=== PATIENT | female | born 1980 | race Caucasian/White ===

== ENCOUNTER 2022-03-18 10:38 | Outpatient (CLI) | payer BC, SELFPAY | END 2022-03-18 10:39 | disposition home or self-care (01) | LOC: US 10:39 | PROVIDERS: Visit Provider Obstetrics & Gynecology | DX: O09.523 Supervision of elderly multigravida, third trimester (principal); O10.913 Unspecified pre-existing hypertension complicating pregnancy, third trimester; O98.513 Other viral diseases complicating pregnancy, third trimester; U07.1 COVID-19; Z3A.38 38 weeks gestation of pregnancy ==

== ENCOUNTER 2022-03-18 10:44 | Outpatient (CLI) | payer BC, SELFPAY ==
--- NOTE | 2022-03-18 10:45 | CRLHL7_ITS ---
For Patients: As a result of the Cures Act, medical imaging exams and procedure reports are released immediately into your electronic medical record. You may view this report before your referring provider. If you have questions, please contact your health care provider. Indication: Nonreactive nonstress test. Measuring small for gestational age. Technique: Sonography of the gravid uterus was performed limited to that which is discussed below. Comparison: The most recent study of March 14, 2022 Findings: The biophysical profile score is 6 out of 8. breathing movement scored 0 points. The biophysical profile on the prior study was 8 out of 8. There is a single live intrauterine that is currently vertex. The cervix is not visualized. The single deepest pocket is 7 centimeters. heart rate is 142 beats per minute. The placenta is posterior. BIOMETRY: BPD is 9.2 centimeters corresponding to 37 weeks and 3 days at the 52 percentile HC is 33.5 centimeter corresponding to 38 weeks and 2 days at the 33 percentile AC is 34.33 centimeters corresponding to 38 weeks and 2 days at the 68th percentile FL is 7.0 centimeters corresponding to 35 weeks and 6 days and corresponding to the 6 percentile FL/AC ratio is 20.3 and HC/AC ratio is 0.98 weight is 3253 grams. Age by current ultrasound is 37 weeks and 3 days with an estimated date of delivery by this ultrasound of 03/1922. Estimated weight as based on the estimated date of delivery is 46 percentile Impression: 1. The biophysical profile score is 6 out of 8. breathing movement scored 0 points 2. There is a single live that is vertex. Cervix not visualized. Normal fluid volumes. Normal heart rate. Placenta posterior. 3. Current weight of 3253 grams is at the 46 percentile 4. Biometry as in the body of the report Dictated by Ranulfo Garcia MD @ 03/18/2022 12:44:13 PM (Electronically Signed)
== END 2022-03-18 10:45 | disposition home or self-care (01) ==
LOC: US 10:45
PROVIDERS: Visit Provider Obstetrics & Gynecology
DX: O09.523 Supervision of elderly multigravida, third trimester (principal); O10.913 Unspecified pre-existing hypertension complicating pregnancy, third trimester; O98.513 Other viral diseases complicating pregnancy, third trimester; U07.1 COVID-19; Z3A.38 38 weeks gestation of pregnancy
CPT/HCPCS: 76816; 76819

== ENCOUNTER 2022-03-19 17:26 | Inpatient (IN) | payer BC, SELFPAY ==
[2022-03-19 17:43] VITALS: BP 118/56; PULSE 75
[2022-03-19 17:48] VITALS: BP 118/56; PULSE 75; RESP 18; TEMP 36.9
[2022-03-19 18:12] LABS: Hemoglobin* 10.6 gm/dL (12.0-16.0)
[2022-03-19 18:45] VITALS: BMI 31.1
[2022-03-19 19:05] LABS: SARS PCR* POSITIVE (Negative)
--- NOTE | 2022-03-19 19:21 | P.LDBA_ITS ---
Subjective History of Present Illness Time Seen by Provider: 19:20 Date Seen: 03/19/22 Narrative: Bernarda is a 41 year old with a female fetus at 38weeks 3 days GA. Her full history and physical was dictated by Dr. Morgan Mg on March 14; please see this document for further details. Because of AMA status, biophysical profile was done March 14, and was 8/8. At a routine visit yesterday March 18,, Bernarda reported diminished movement. Subsequent NST was nonreactive, and follow-up BPP lacked breathing movements and was 6/8, therefore equivocal. Repeat BPP and NST today returned at the sameresults. After discussion of the risks and benefits of induction of labor for non-reassuring testing, all of Bernarda's questions were answered to her satisfaction; she agreed to start labor induction this evening. Prior cervix exams at the clinic were 1 /70/ high; presentation was vertex. Since starting twice -daily propranolol, Bernarda has had 1 migraine headache in the last month. OB - H&P: Exam Physical Exam: Vital signs: Temp Pulse Resp BP 98.4 F 75 18 118/56 L 03/19/22 17:48 03/19/22 17:48 03/19/22 17:48 03/19/22 17:48 Constitutional: Comments: Well -appearing gravid female in no acute distress. Routine Respiratory Exam: Comments: Normal respiratory effort. No cough or wheeze. Routine Cardiovascular Exam: Comments: Regular rate and rhythm. No peripheral edema. Detailed Abdominal Exam: Comments: Gravid abdomen, soft, nontender. Fundal height consistent with dates. presentation vertex by Jacob's. Detailed Labor and Delivery Exam: Dilation (cm): 1 Effacement (%): 60 Cervix position: posterior Consistency: soft Fetus (Single): Station: -3 Routine Neurological Exam: Present alert, CN II-XII intact, moving all ex tremities and normal speech Routine Psychiatric Exam: Present normal affect, normal thought process, cooperative and good insight OB - Problem Based A/P Additional Plan (1) Multigravida of advanced maternal age: Problem details: non-reassuring testing; induction of labor indicated Status: Acute (2) Migraine headache: Problem details: Rare since starting propranolol. Maxalt for breakthrough as needed. Status: Acute (3) Hypertension: Problem details: history of chronic hypertension. BID propranolol maintains systolic blood pressures 96-132; diastolic blood pressures 52-82. Status: Acute (4) : Problem details: Biophysical profile reveals adequate amniotic fluid, but inadequate--though present-- breathing movements. Category 2 NST with moderate variability, lacking accelerations or decelerations. Induction of labor indicated for advanced maternal age with non-reassuring testing. Lopez score 5. GBS negative. Rh positive. Rubella immune. Received Tdap and influenza vaccinations. Status: Acute Plan Admit to Center. Oral misoprostol ordered. AROM and/or Pitocin as needed. Continue propranolol twice daily.
[2022-03-19 20:01] VITALS: BP 117/74; PULSE 72
[2022-03-19 20:39] VITALS: BP 131/85; PULSE 72
[2022-03-19 20:41] VITALS: BP 131/85; PULSE 72; RESP 16; TEMP 36.9
[2022-03-19] MEDS: miSOPROStoL 25 MCG/0.25 TABLET 50 MCG PO (20:43)
[2022-03-19] MEDS: PROPRANOLOL 20 MG TABLET 60 MG PO (20:44)
[2022-03-19] MEDS: LACTATED RINGERS 1000 ML 1,000 ML IV (23:48)
[2022-03-20] VITALS (76 sets, daily range): BP systolic 101–161; BP diastolic 57–94; PULSE 59–83; RESP 16–20; TEMP 36.6–37.1; O2SAT 94–99
[2022-03-20] MEDS: miSOPROStoL 25 MCG/0.25 TABLET 50 MCG PO ×2 (00:55→04:40)
[2022-03-20] MEDS: hydrOXYzine pamoate 25 MG CAPSULE 100 MG PO (00:56)
[2022-03-20] MEDS: SIMETHICONE 80 MG TAB.CHEW PO (00:56)
--- NOTE | 2022-03-20 10:37 | PM.OBPNL ---
Pain Control Comments: movements reduced. Contractions felt more acutely. Contractions Monitor mode: External Contraction pattern: Irregular Contraction intensity: Moderate Pelvic Exam Dilation (cm): 2 Effacement (%): 80 Station: -2 Comments: midposition, soft Fetus (Single) status: Category ll Assessment and Plan Assessment: induction ongoing Plan: begin Pitocin augmentation Comments: Will initiate Pitocin, starting at 2mIU/min and advancing every 30 minutes. Consider AROM, IUPC.
[2022-03-20] MEDS: PROPRANOLOL 20 MG TABLET 60 MG PO (10:55)
[2022-03-20] MEDS: OXYTOCIN 30 unit/500 ML in NS 30 UNIT/500 ML BAG IVPB (10:57)
[2022-03-20] MEDS: LACTATED RINGERS 1000 ML 1,000 ML 125 ML IV (11:03)
[2022-03-20] MEDS: fentaNYL 100 MCG/2 ML inj IVP (14:14)
--- NOTE | 2022-03-20 16:56 | PM.OBPNL ---
Pain Control Time Seen by Provider: 16:56 Date Seen: 03/20/22 Pain control: tolerating well Contractions Monitor mode: External Contraction pattern: Irregular Contraction intensity: Moderate Pelvic Exam Dilation (cm): 2 Effacement (%): 80 Station: -2 Comments: midposition Fetus (Single) Amniotic Membrane Status: AROM (copious clear) status: Category ll Assessment and Plan Pitocin rate (mU/min): 9 Assessment: induction ongoing Comments: Increase Pitocin per protocol. Consider IUPC. Epidural as desired.
[2022-03-20] MEDS: LIDOCAINE 2% (PF) 5 ML VIAL EPIDURAL (17:55)
[2022-03-20] MEDS: ROPIVACAINE 0.2% 100 ml 100 ML 12 MG EPIDURAL (17:56)
--- NOTE | 2022-03-20 18:17 | P.ANBPRC_ITS ---
[facility] Medical History (Updated 03/20/22 @ 09:48 by César Savage MD) History of gestational hypertension Social History Smoking Status: Never smoker Meds Home Medications and Allergies Home Medications Medication Instructions Recorded Confirmed Type aspirin 81 mg tablet,delayed 81 mg PO QDAY 03/18/22 03/18/22 History release (Enteric Coated Aspirin) docosahexaenoic acid 200 mg mg PO 03/18/22 03/18/22 History capsule ( DHA) docusate sodium 100 mg capsule mg PO .as needed PRN 03/18/22 03/18/22 History ferrous fumarate 89 mg (29 mg 45 mg PO QDAY tab 03/18/22 03/18/22 History iron) tablet propranolol 60 mg tablet mg PO BID 03/18/22 03/18/22 History rizatriptan 10 mg tablet 10 mg PO .As Needed as needed PRN 03/18/22 03/18/22 History Allergies Allergy/AdvReac Type Severity Reaction Status Date / Time No Known Allergies Allergy Unknown Unverified 03/20/22 04:43 Results Labs Labs: Laboratory Results - last 24 hr 03/19/22 03/19/22 17:44 18:00 SARS-CoV-2 (PCR) POSITIVE Blood Type O Positive Antibody Screen NEGATIVE Vital Signs Vital Signs: Last Vital Signs Temp 98.5 F 03/20/22 17:21 Pulse 67 03/20/22 18:14 Resp 20 03/20/22 17:21 BP 118/57 L 03/20/22 18:14 Pulse Ox 98 03/20/22 18:12 Weight: 88.088 kg Height: 167.64 cm Anesthesia Procedures Epidural Insertion Patient Location: OB Reason for Block: primary anesthetic Patient Position: sitting Performed By: Apollo Jacobo Preanesthetic Checklist: IV checked, risks and benefits discussed, surgical consent, monitors and equipment checked, pre-op evaluation, timeout performed and anesthesia consent Prep: chlorhexidine gluconate Monitoring: blood pressure monitoring, crisis intervention counselor, continuous pulse oximetry and heart rate Approach: midline Vertebral Space: lumbar (1-5) Epidural Technique: DANIELLE saline Needle Type: Tuohy needle Injection Technique: continuous shot Needle gauge: 17 Needle Length (cm): 10 cm Needle Insertion Depth (cm): 6 Catheter Gauge: 19 Catheter Type: multi-orifice Catheter at skin depth (cm): 12 Test Dose Result: negative and lidocaine 1.5% with epinephrine 1 to 200,000 Events: other
--- NOTE | 2022-03-20 18:17 | W.ANESCHARGE ---
Anesthesia Charges Start Date/Time Anesthesia Start Date: 03/20/22 Anesthesia Start Time: 17:15 Stop Date/Time Anesthesia Stop Date: 03/20/22 Anesthesia Stop Time: 18:15 Summary Emergency: No
--- NOTE | 2022-03-20 20:10 | PM.OBPNL ---
Pain Control Time Seen by Provider: 20:10 Date Seen: 03/20/22 Pain control: epidural (somewhat less effect on right) Contractions Monitor mode: External Contraction pattern: Irregular Contraction intensity: Strong/Firm Pelvic Exam Dilation (cm): 4 Effacement (%): 90 Station: -1 Comments: Contractions not tracing well enough externally. IUPC placed easily. Fetus (Single) Amniotic Membrane Status: AROM (copious clear) status: Category ll Comments: moderate variability, no decelerations: reassuring Assessment and Plan Pitocin rate (mU/min): 7 Assessment: active labor Comments: increase Pitocine Q30min until 200 MVU achieved. Anticipate vaginal .
--- NOTE | 2022-03-20 22:07 | PM.OBPRCVD ---
Procedure Procedure Done: Global Events: Chronic Hypertension and Other (non-reassuring testing at term) Intrapartal Events: Labor Augmentation and Labor Induction Induction method: per misoprostol protocol Delivery augmentation: rupture of membranes and pitocin Delivery monitor: external FHT and internal uterine Route of delivery: Laceration description: Perineal - 1st Degree Delivery repair: Vicryl (3-0) Estimated blood loss (mL): 100 Anesthesia type: Epidural Disposition: no change Complications: none apparent [place] Infant Gender: Female presentation: vertex Placental Delivery Description: Spontaneous Cord Description: 3 Vessels, Nuchal Cord, Loose and Reduced
[2022-03-20] MEDS: IBUPROFEN 600 MG TABLET PO (23:32)
[2022-03-21] VITALS (11 sets, daily range): BP systolic 100–121; BP diastolic 61–75; PULSE 66–98; RESP 16–20; TEMP 36.4–36.9; O2SAT 96–97
[2022-03-21] MEDS: PROPRANOLOL 20 MG TABLET 60 MG PO ×4 (00:36→22:43)
[2022-03-21] MEDS: IBUPROFEN 600 MG TABLET PO ×3 (05:25→22:44)
[2022-03-21] MEDS: ACETAMINOPHEN 500 MG TABLET 1000 MG PO (06:29)
--- NOTE | 2022-03-21 11:24 | PM.OBPNVD1 ---
OB - PN:Subj Subjective Time Seen by Provider: 11:23 Date Seen: 03/21/22 Interval history: Jaleesa is a 39yo now [id number] who is PPD1 from IOL for non-reassuring testing, with vaginal delivery of 6lb9oz female Xuan. She is doing well, only complaint is abdominal wall soreness. Lochia is decreasing, without clots. She is voiding fully. Pain is controlled with ibuprofen and acetaminophen. Baby is latching vigorously, every 15.-2hrs. OB - PN: Obj Exam Physical Exam: Vital signs: Temp Pulse Resp BP Pulse Ox 97.7 F 69 20 121/75 97 03/21/22 07:38 03/21/22 07:38 03/21/22 07:38 03/21/22 07:38 03/21/22 07:38 Constitutional: Constitutional: no acute distress Routine Cardiovascular Exam: Comments: Normal rate and blood pressure. No peripheral edema. Detailed Abdominal Exam: Comments: Fundus firm, appropriate height. Routine Extremities Exam: Extremities: Present normal inspection and pulses intact; Absent calf tenderness or pedal edema Routine Neurological Exam: Neurological: Present alert and CN II-XII intact Routine Psychiatric Exam: Psychiatric: Present normal affect and normal thought process OB - PN: A/P Vaginal Delivery Assessment and Plan (1) Multigravida of advanced maternal age: Problem details: Induction was already planned for 39w because of AMA, cHTN. Status: Acute (2) Migraine headache: Problem details: None in past month; rare since starting propranolol. Maxalt for breakthrough as needed. Status: Acute (3) Hypertension: Problem details: History of chronic hypertension. BID propranolol maintains systolic blood pressures 96-132; diastolic blood pressures 52-82. Status: Acute (4) : Problem details: Biophysical profile reveals adequate amniotic fluid, but inadequate--though present-- breathing movements. Category 2 NST with moderate variability, lacking accelerations or decelerations. Induction of labor indicated for advanced maternal age with non-reassuring testing. Lopez score 5. GBS negative. Rh positive. Rubella immune. Received Tdap and influenza vaccinations. Status: Acute Plan day: 1 Plan: routine care Comments: Assist with .
[2022-03-21] MEDS: bisacodyL 5 MG TABLET DR PO (11:46)
[2022-03-21 13:03] LABS: SARS Antigen* Negative
[2022-03-21] MEDS: SIMETHICONE 80 MG TAB.CHEW PO ×2 (15:43→19:48)
[2022-03-21] MEDS: LANOLIN CREAM 1 APPLIC TOPICAL (16:45)
[2022-03-22 04:57] VITALS: BP 125/74; PULSE 67; RESP 16; TEMP 36.6; O2SAT 98
[2022-03-22] MEDS: IBUPROFEN 600 MG TABLET PO ×3 (05:11→17:23)
[2022-03-22] MEDS: SIMETHICONE 80 MG TAB.CHEW PO ×3 (05:11→13:14)
[2022-03-22 07:44] VITALS: BP 135/86; PULSE 63; RESP 15; TEMP 36.6; O2SAT 97
[2022-03-22 09:17] LABS: Hemoglobin* 11.5 gm/dL (12.0-16.0)
[2022-03-22] MEDS: PROPRANOLOL 20 MG TABLET 60 MG PO (09:27)
--- NOTE | 2022-03-22 09:37 | P.DS_ITS ---
DS: Providers Provider Date of admission: 03/19/22 17:26 Primary care physician: Ginny Stacy MD Admitting Clinician: César Savage MD Attending Physician on discharge: César Savage MD DS: Diagnosis Discharge Diagnosis (1) Multigravida of advanced maternal age: Status: Acute Problem details: Induction was already planned for 39w because of AMA, cHTN. (2) Migraine headache: Status: Acute Problem details: None in past month; rare since starting propranolol. Maxalt for breakthrough a s needed. (3) Hypertension: Status: Acute Problem details: History of chronic hypertension. BID propranolol maintains systolic blood pressures 96-132; diastolic blood pressures 52-82. (4) : Status: Acute Problem details: Biophysical profile reveals adequate amniotic fluid, but inadequate--though present-- breathing movements. Category 2 NST with moderate variability, lacking accelerations or decelerations. Induction of labor indicated for advanced maternal age with non-reassuring testing. Lopez score 5. GBS negative. Rh positive. Rubella immune. Received Tdap and influenza vaccinations. Exam Const: Vital Signs, click to edit/add: Vital Signs - 24 hr 03/21/22 11:50 03/21/22 16:48 03/21/22 22:37 Temperature 97.5 F L 98.5 F Pulse Rate [Pulse Oximeter] 76 98 66 Respiratory Rate 20 20 16 Blood Pressure [Ri ght Arm] 108/72 121/72 111/74 Pulse Oximetry 96 03/21/22 22:44 03/22/22 04:57 03/22/22 07:44 Temperature 98.1 F 97.8 F 97.8 F Pulse Rate [Pulse Oximeter] 67 63 Respiratory Rate 16 15 Blood Pressure [Ri ght Arm] 125/74 135/86 Pulse Oximetry 98 97 Common normals: no apparent distress, average body habitus, oriented x3, no limitations, healthy appearing, alert and well nourished General appearance: cooperative, well kempt and well developed HENMT: Common normals: normocephalic Head and scalp: normocephalic Neck & C-Spine: Common normals: full ROM General: normal visual inspection Chest: Common normals: inspection of chest normal Resp: Common normals: normal respiratory effort, no retractions, no use of accessory muscles and clear to auscultation bilaterally Auscultation: clear to auscultation bilaterally Cardio: Common normals: regular rate, regular rhythm, S1 normal heart sound, S2 normal heart sound, no gallops, no clicks, no murmurs and no rub Rate: regular rate Rhythm: regular rhythm Heart sounds: S1 normal and S2 normal GI: Common normals: soft to palpation Inspection: abdominal distension Auscultation: hyperactive bowel sounds and high-pitched bowel sounds Palpation: soft, tender and guarding : Common normals: external appearance normal OB/external & speculum: Yes external exam normal Uterus: U/2 Lochia: small Back & Pelvis: Common normals: thoracic and lumbar spine normal to inspection Extremity: Common normals: normal to inspection, full ROM, no calf tenderness and no pedal edema Neuro: Common normals: oriented x3 Sensorium/orientation: alert Psych: Common normals: mental status grossly normal Appearance: well kempt OB - DS: Summary Hospital Course Hospital Course: The patient is a 41 year old at 38.6 weeks gestation that was admitted to the Center on 03/19/22 for IOL for decreased movement. She had an uncomplicated vaginal delivery. She delivered a viable female . She is breast feeding and denies complications. the patient has done well. Starting yesterday she has been experiencing intense low abdominal pain, not associated with . She has been taking a stool softener and simethicone and has been passing gas frequently. She did have multiple bowel movements yesterday that were soft. Yesterday evening the BMs were loose. The pain increases with movements especially with standing. She has only ambulated in the room. Significant abdominal pain with palpation and intense guarding to the lower abdomen. Abdomen appears distended. Lochia has decreased to a small amount and she denies clots. Peripartum Data Infant delivery method: Vaginal Laceration description: Perineal - 1st Degree Episiotomy description: None complications: none [place] Infant Gender: Female Discharge Plan: Home Status at Discharge Functional status at discharge: independent ambulation Overall status at discharge: patient is progressing back to baseline Time Spent with Patient Time attestation: Total time spent providing and/or coordinating discharge services: Time spent: Less than 30 minutes Discharge Plan Discharge Disposition: Home, Self-Care Date of Admission: 03/19/22 17:26 Primary Care Provider: Ginny Stacy Condition: Stable Anticipated Discharge Date/Time: 03/22/22 13:00 Discharge Medications: New bisacodyl [Gentle Laxative (bisacodyl)] 5 mg Tablet,Delayed Release (Dr/Ec) 5 mg PO BID PRN (Reason: constipation) Qty: 100 0RF ibuprofen 600 mg Tablet 600 mg PO Q6H PRN (Reason: uterine or perineal pain) Qty: 60 0RF simethicone 80 mg Tablet,Chewable 80 - 160 mg PO Q4H PRN (Reason: gas) Qty: 30 0RF Continued propranolol 60 mg tablet PO BID 0RF docusate sodium 100 mg capsule PO .as needed PRN0RF rizatriptan 10 mg tablet 10 mg PO .As Needed as needed PRN0RF Rx Instructions: TAKE ONE TAB AT ONSET OF HEADACHE, MAY REPEAT Q2H PRN, MAX 30 MG/24 HRS DHA 200 mg capsule PO 0RF Discontinued ferrous fumarate 89 mg (29 mg iron) tablet 45 mg PO QDAY 0RF aspirin [Enteric Coated Aspirin] 81 mg tablet,delayed release (DR/EC) 81 mg PO QDAY 0RF Discharge Orders: Discharge Order (Routine); Ordered 03/22/22 Ordered By: Sophie Wright Patient Education: OB Vaginal/Breast Feeding Activity Level: No Restrictions and Activity as Tolerated Discharge Diet: Regular Follow Up Appointments: Ginny Stacy MD [Primary Care Provider] - Forms: MyHealth Info Instructions Discharge Comment: Follow up in 2 and 6 weeks.
--- NOTE | 2022-03-22 12:05 | CRLHL7_ITS ---
For Patients: As a result of the Century Cures Act, medical imaging exams and procedure reports are released immediately into your electronic medical record. You may view this report before your referring provider. If you have questions, please contact your health care provider. Indication: INCREASING ABD PAIN DAY 2 POST . LOWER ABD Technique: Postcontrast CT abdomen and pelvis. 92 cc Isovue 370 intravenous contrast. Please note that all CT scans at this facility use dose modulation, iterative reconstruction, and/or weight-based dosing when appropriate to reduce radiation dose to as low as reasonably achievable. Comparison: Ultrasound Ob biophysical profile 03/19/2022 Findings: Lung bases are clear. Visualized breast tissue appears normal. Simple cyst left hepatic lobe measuring 6 millimeters. No suspicious intrahepatic mass. The gallbladder is nondistended. No calcified gallstones. No biliary obstruction. The pancreas is within normal limits. Normal spleen. The adrenal glands are normal. Normal kidneys and ureters. The bladder is normal. Normal appendix. No bowel obstruction or free air. Umbilical hernia containing fat measuring 1.8 cm. Normal osseous structures. Spurring at the inferior sacroiliac joints with vacuum phenomenon. Reactive sclerosis about the SI joints. Gravid uterus. Multiple distended vessels are present along the right fundal uterus corresponding to the area where the placenta was located. Increased vascularity along the lower uterine segment bilaterally, right greater than left. No evidence of venous thrombus. There is mild density within the endometrial canal at the lower aspect. No uterine rupture. Impression: Gravid uterus with numerous dilated vessels associated with the right uterine fundal region corresponding to the area of the placenta. Cannot exclude residual placental tissue or residual products of conception within the lower endometrial canal. An ultrasound is recommended for further evaluation of possible retained products of conception. Umbilical hernia containing fat. No bowel involvement. Subcentimeter cyst in the liver, considered incidental. Please note that all CT scans at this facility use dose modulation, iterative reconstruction, and/or weight-based dosing when appropriate to reduce radiation dose to as low as reasonably achievable. Dictated by Rubin Bowen MD @ 03/22/2022 2:14:24 PM (Electronically Signed)
--- NOTE | 2022-03-22 12:08 | SUR.ANES ---
Bernarda states epidural was helpful, and she has no headache, significant backache, is able to ambulate, and is eating and drinking. Her main complaint is a sore abdomen, which she will be scanned for. Lab work is also ordered. -Seth Varner
[2022-03-22 12:16] LABS: Basophils Percent Auto 0.2 % (0.0-3.0); Eosinophils Percent Auto 1.5 % (0.0-7.0); Hematocrit 35.8 % (33.0-51.0); Hemoglobin* 11.5 gm/dL (12.0-16.0); Immature Granulocytes Abs Auto 0.07 K/uL (0.00-0.30); Lymphocytes Percent Auto 11.6 % (20-44); Mean Corpuscular HGB Conc 32 gm/dL (32-36); Mean Corpuscular Hemoglobin 32 pg (26-34); Mean Corpuscular Volume 100 fL (80-100); Monocytes Percent Auto 4.7 % (0.0-11.0); Neutrophils Percent Auto 81.6 % (42.0-72.0); Platelet Count* 240 K/uL (140-440); RDW Coefficient of Variation % 14.2 % (11.5-15.5); Red Blood Count 3.59 m/uL (4.00-5.20); White Blood Count* 15.79 K/uL (4.50-11.00)
[2022-03-22 12:38] VITALS: BP 129/78; PULSE 74; RESP 15; TEMP 36.7; O2SAT 96
[2022-03-22 14:56] LABS: Slide Review Reflex No
--- NOTE | 2022-03-22 14:56 | CRLHL7_ITS ---
For Patients: As a result of the Cures Act, medical imaging exams and procedure reports are released immediately into your electronic medical record. You may view this report before your referring provider. If you have questions, please contact your health care provider. INDICATION: Abdominal pain. TECHNIQUE: Ultrasound pelvis transabdominal. Real-time sonographic images with color Doppler imaging. COMPARISON: None. FINDINGS: Uterus: Enlarged, consistent with post gravid state. Mild heterogeneity of the myometrium increased vascularity of the myometrium consistent with provided history of recent delivery. Endometrium: Endometrial thickness measures 10 mm. Mild irregularity throughout the endometrium which is slightly hyperechoic. No definite vascular mass identified within the endometrium. Right and left ovaries are not visualized. No adnexal masses. Cul-de-sac: No significant free fluid. IMPRESSION: No definite evidence of retained products of conception. Slightly heterogeneous enlarged and vascular uterus, expected findings in this post gravid patient. Repeat short interval ultrasound if there is persistent concern for retained products. Dictated by Laurence Degroot MD @ 03/22/2022 5:20:00 PM (Electronically Signed)
[2022-03-22] MEDS: ACETAMINOPHEN 500 MG TABLET 1000 MG PO (15:20)
[2022-03-22] MEDS: OXYCODONE 5 MG TABLET PO (15:21)
--- NOTE | 2022-03-22 15:43 | P.OBPN_ITS ---
OB - PN:Subj Subjective Patient comments OB post-: flatus present Pickford status: Pickford feeding status: exclusively Narrative: Patient c/o lower abdominal pain this morning. Encouraged to walk and try an abdominal binder to increase comfort and encouraged bowel activity. At noon patient complained of increasing pain. Able to pass gas without difficulty. Dr. Mg consulted. CT and CBC ordered. CT results negative but unable to r/o retained products of conception. After additional consultation with Dr. Mg, US recommended to confirm. Patient also encourage to stay inpatient an additional night for pain control and monitoring. She agrees to the US but is unsure if she will be willing to stay if US results normal. OB - PN: Obj Exam Physical Exam: Vital signs: Temp Pulse Resp BP Pulse Ox 98.1 F 74 15 129/78 96 03/22/22 12:38 03/22/22 12:38 03/22/22 12:38 03/22/22 12:38 03/22/22 12:38 Constitutional: Constitutional: mild distress Routine Abdominal Exam: Abdominal: Present distended, guarding, hyperactive bowel sounds (tympanic), soft and tenderness OB - PN: Obj Data Labs Labs: Laboratory Results - last 24 hr 03/22/22 03/22/22 09:10 09:10 WBC 15.79 H RBC 3.59 L Hgb 11.5 L 11.5 L Hct 35.8 MCV 100 MCH 32 MCHC 32 RDW Coeff of Tatiana 14.2 Plt Count 240 Neut % (Auto) 81.6 H Lymph % (Auto) 11.6 L [place] % (Auto) 4.7 Eos % (Auto) 1.5 Baso % (Auto) 0.2 Neut # (Auto) 12.90 H Lymph # (Auto) 1.80 [place] # (Auto) 0.70 Eos # (Auto) 0.20 Baso # (Auto) 0.00 Abs Immat Gran (auto) 0.07 OB - PN: A/P Vaginal Delivery Assessment and Plan (1) Multigravida of advanced maternal age: Problem details: Induction was already planned for 39w because of AMA, cHTN. Status: Acute (2) Migraine headache: Problem details: None in past month; rare since starting propranolol. Maxalt for breakthrough as needed. Status: Acute (3) Hypertension: Problem details: History of chronic hypertension. BID propranolol maintains systolic blood pressures 96-132; diastolic blood pressures 52-82. Status: Acute (4) : Problem details: Biophysical profile reveals adequate amniotic fluid, but inadequate--though present-- breathing movements. Category 2 NST with moderate variability, lacking accelerations or decelerations. Induction of labor indicated for advanced maternal age with non-reassuring testing. Lopez score 5. GBS negative. Rh positive. Rubella immune. Received Tdap and influenza vaccinations. Status: Acute
[2022-03-22 16:07] VITALS: BP 123/81; PULSE 74; RESP 16; TEMP 36.4; O2SAT 96
== END 2022-03-22 18:10 | disposition home or self-care (01) | DRG 560 ==
PROVIDERS: Advanced Practice Midwife; Admitting Provider Obstetrics & Gynecology; PCP Obstetrics & Gynecology; Visit Provider Obstetrics & Gynecology
DX: O36.8130 Decreased fetal movements, third trimester, not applicable or unspecified (principal); O10.92 Unspecified pre-existing hypertension complicating childbirth; O70.0 First degree perineal laceration during delivery; G43.909 Migraine, unspecified, not intractable, without status migrainosus; Z3A.38 38 weeks gestation of pregnancy; Z37.0 Single live birth
CPT/HCPCS: 01967; 36415; 59025; 59200; 74177; 76816; 76819; 76856; 85018; 85025; 86850; 86900; 86901; 87426; 87635; 99211; A9270; J2795; J3010; J7120; Q9967

== ENCOUNTER 2022-10-14 12:49 | Outpatient (CLI) | payer BC, SELFPAY ==
--- NOTE | 2022-10-14 13:00 | CRLHL7_ITS ---
For Patients: As a result of the Century Cures Act, medical imaging exams and procedure reports are released immediately into your electronic medical record. You may view this report before your referring provider. If you have questions, please contact your health care provider. INDICATION: , dating and viability. TECHNIQUE: Ultrasound OB pelvis transvaginal. Real-time vasquez-scale imaging of the pelvis was performed. COMPARISON: None FINDINGS: A gestational sac is identified within the endometrial cavity with a possible 2nd gestational sac adjacent. No embryo or yolk sac is identified within this 2nd collection. The embryo demonstrates a regular cardiac rate measuring 170 beats per minute. The embryo`s crown rump length measurement of 1.7 cm corresponds to a gestational age of 8 weeks 0 days with a sonographic due date of 05/26/2023. There is a normal appearing yolk sac. There are no gross abnormalities noted within the embryo at this early state of development. The placenta has not yet developed. Hypoechoic avascular perigestational collection measuring 2.9 x 0.8 x 4.2 centimeters. Maternal right ovary measures 3.6 x 1.8 x 2.2 centimeters and contains a 2.1 centimeter corpus luteum. Trace free fluid in the pelvic cul-de-sac. IMPRESSION: 1. Live intrauterine gestation with a sonographic age of 8 weeks 0 days. 2. Adjacent structure which could represent a 2nd gestational sac although this is smaller and without a yolk sac or embryo. Suspect this may represent a blighted twin. 3. Perigestational bleed measuring 2.9 x 0.8 x 4.2 centimeters. Dictated by Yousuf Vegas MD @ 10/14/2022 3:17:55 PM (Electronically Signed)
== END 2022-10-14 12:50 | disposition home or self-care (01) ==
LOC: US 12:51
PROVIDERS: PCP Physician Assistant Medical; Visit Provider Registered Nurse
DX: Z34.91 Encounter for supervision of normal pregnancy, unspecified, first trimester (principal); O20.9 Hemorrhage in early pregnancy, unspecified; Z3A.08 8 weeks gestation of pregnancy
CPT/HCPCS: 76817; 82565; 82570; 84156; 84450; 84460; 84520; 84550; 86592; 86703; 86762; 86787; 86803; 86850; 86900; 86901; 87086; 87340; 87491; 87591

== ENCOUNTER 2022-10-27 08:00 | Outpatient (CLI) | payer BC, SELFPAY ==
--- NOTE | 2022-10-27 08:15 | CRLHL7_ITS ---
For Patients: As a result of the Century Cures Act, medical imaging exams and procedure reports are released immediately into your electronic medical record. You may view this report before your referring provider. If you have questions, please contact your health care provider. INDICATION: follow up first trimester viable fetus with possible 2nd gest. sac COMPARISON: 10/14/2022 TECHNIQUE: Real-time vasquez-scale imaging of the pelvis was performed. FINDINGS: There are 2 gestational sacs within the endometrial canal. The larger gestational sac has a mean sac diameter of 4.4 cm and appears normal. A normal yolk sac is noted. pole is present with crown-rump length measuring 3.2 cm corresponding to a 10 week 1 day gestation and sonographic due date of 05/24/2023. heart rate 171 beats per minute. The smaller gestational sac measures 1.2 cm and contains a prominent yolk sac measuring 5.4 millimeters. No pole within the 2nd sac. The ovaries are normal. No ectopic . No free fluid. Small subchorionic hemorrhage seen inferiorly measuring 1.9 x 0.5 x 0.9 cm. IMPRESSION: A normal gestational sac is present within the endometrial canal containing a normal early measuring 10 weeks 1 day and sonographic due date of 05/24/2023. A 2nd smaller abnormal gestational sac is present with abnormally prominent yolk sac and no pole consistent with anembryonic 2nd gestation. Dictated by Rubin Bowen MD @ 10/27/2022 11:30:10 AM (Electronically Signed)
== END 2022-10-27 08:01 | disposition home or self-care (01) ==
LOC: US 08:02
PROVIDERS: PCP Physician Assistant Medical; Visit Provider Registered Nurse
DX: O30.001 Twin pregnancy, unspecified number of placenta and unspecified number of amniotic sacs, first trimester (principal); O31.21X2 Continuing pregnancy after intrauterine death of one fetus or more, first trimester, fetus 2; Z3A.10 10 weeks gestation of pregnancy
CPT/HCPCS: 76817

== ENCOUNTER 2023-01-04 14:38 | Outpatient (CLI) | payer BC, SELFPAY | END 2023-01-04 14:39 | disposition home or self-care (01) | LOC: US 14:39 | PROVIDERS: PCP Physician Assistant Medical; Visit Provider Pediatrics Neonatal-Perinatal Medicine | DX: O09.522 Supervision of elderly multigravida, second trimester (principal); Z3A.19 19 weeks gestation of pregnancy | CPT/HCPCS: 76811 ==

== ENCOUNTER 2023-03-08 11:08 | Outpatient (CLI) | payer BC, SELFPAY | END 2023-03-08 11:09 | disposition home or self-care (01) | PROVIDERS: PCP Physician Assistant Medical; Referring Provider Physician Assistant Medical; Visit Provider Obstetrics & Gynecology | DX: Z34.90 Encounter for supervision of normal pregnancy, unspecified, unspecified trimester (principal) | CPT/HCPCS: 86592 ==

== ENCOUNTER 2023-03-30 13:00 | Outpatient (CLI) | payer BC, SELFPAY ==
--- NOTE | 2023-03-30 13:00 | CRLHL7_ITS ---
For Patients: As a result of the Century Cures Act, medical imaging exams and procedure reports are released immediately into your electronic medical record. You may view this report before your referring provider. If you have questions, please contact your health care provider. INDICATION: Advanced maternal age TECHNIQUE: Real time vasquez scale imaging of the fetus was performed. COMPARISON: 01/04/2023 FINDINGS: Sonographic imaging demonstrates a single living intrauterine gestation. Fetus demonstrates a regular cardiac rate of 133 beats per minute. Fetus has a vertex position. The placenta lies posteriorly. Amniotic fluid volume appears normal and there is a single deepest pocket of 4.8 cm. The estimated weight is 2000gm which lies at the 62nd %. On the prior OB ultrasound dated 01/04/2023 the estimated weight was at the 84th percentile. BPD 52nd percentile. HC 39th percentile. AC 85th percentile. FL 22nd percentile. The fetus was active and demonstrated normal breathing movements. There was normal flexion and extension of the trunk and extremities. IMPRESSION: Normal biophysical profile score 8/8. Sonographic gestational age 32 weeks 3 days and sonographic due date 05/22/2023. Good correlation with dates. Normal interval growth. Estimated weight 62nd percentile. Abdominal circumference 85th percentile. Dictated by Rubin Bowen MD @ 03/31/2023 9:30:39 AM (Electronically Signed)
== END 2023-03-30 13:01 | disposition home or self-care (01) ==
PROVIDERS: PCP Physician Assistant Medical; Visit Provider Obstetrics & Gynecology
DX: O09.523 Supervision of elderly multigravida, third trimester (principal); Z3A.32 32 weeks gestation of pregnancy
CPT/HCPCS: 76816; 76819

== ENCOUNTER 2023-04-26 08:11 | Outpatient (CLI) | payer BC, SELFPAY ==
--- NOTE | 2023-04-26 08:15 | CRLHL7_ITS ---
For Patients: As a result of the Century Cures Act, medical imaging exams and procedure reports are released immediately into your electronic medical record. You may view this report before your referring provider. If you have questions, please contact your health care provider. INDICATION: Third trimester scan, evaluate growth. Advanced maternal age. COMPARISON: 03/30/2023 TECHNIQUE: Real time vasquez scale imaging of the fetus was performed. FINDINGS: Sonographic imaging demonstrates a single living intrauterine gestation. Fetus demonstrates a regular cardiac rate of 115 beats per minute. Fetus has a vertex position. The placenta lies posterior. Amniotic fluid volume appears normal and there is a single deepest vertical pocket: 4.2 cm. The estimated weight is 2606gm which lies at the 34th %. On the prior OB ultrasound exam dated 03/30/2023 the estimated weight was at the 62nd%. BPD 41st percentile. HC 17th percentile. AC 65th percentile. FL 4th percentile. The HC/AC ratio measures 0.99 range (0.93-1.11). IMPRESSION: Sonographic gestational age 35 weeks 0 days and sonographic due date 05/31/2023. Sonographic age is 5 days behind the clinical age. Estimated weight 34th percentile. Abdominal circumference 65th percentile. Dictated by Rubin Bowen MD @ 04/26/2023 9:46:51 AM (Electronically Signed)
== END 2023-04-26 08:12 | disposition home or self-care (01) ==
LOC: US 08:11
PROVIDERS: PCP Physician Assistant Medical; Visit Provider Obstetrics & Gynecology
DX: O09.523 Supervision of elderly multigravida, third trimester (principal); Z3A.35 35 weeks gestation of pregnancy
CPT/HCPCS: 76816; 87081; 87653

== ENCOUNTER 2023-05-05 13:36 | Inpatient (IN) | payer BC, SELFPAY ==
[2023-05-05] VITALS (56 sets, daily range): BP systolic 102–135; BP diastolic 55–92; PULSE 65–82; RESP 16; TEMP 36.7–37.1; O2SAT 97–100; BMI 31.6
[2023-05-05] MEDS: LACTATED RINGERS 1000 ML 1,000 ML 125 ML IV (14:59)
[2023-05-05] MEDS: OXYTOCIN 30 unit/500 ML in NS 30 UNIT/500 ML BAG IVPB (15:00)
[2023-05-05 15:08] LABS: Basophils Percent Auto 0.3 % (0.0-3.0); Hematocrit 32.8 % (33.0-51.0); Hemoglobin* 10.6 gm/dL (12.0-16.0); Immature Granulocytes Pct Auto 1.8 %; Lymphocytes Percent Auto 15.5 % (20-44); Mean Corpuscular HGB Conc 32 gm/dL (32-36); Mean Corpuscular Hemoglobin 32 pg (26-34); Mean Corpuscular Volume 98 fL (80-100); Monocytes Percent Auto 5.5 % (0.0-11.0); Neutrophils Percent Auto 75.9 % (42.0-72.0); Platelet Count* 234 K/uL (140-440); RDW Coefficient of Variation % 15.8 % (11.5-15.5); Red Blood Count 3.36 m/uL (4.00-5.20)
[2023-05-05 15:10] LABS: Slide Review Reflex No
--- NOTE | 2023-05-05 16:25 | P.OBHP_ITS ---
OB - H&P; HPI Antepartum History of Present Illness Time Seen by Provider: 16:25 Date Seen: 05/05/23 Chief complaint: Maternity Narrative: Bernarda Castro is a 42 year old female Specific Issues/Plans : Fernando. Children: Consuelo (F), Azeem, Behzad, Chema, Una. Baby: Girl! Courtney or Aria 1. AMA. 42y.o. at time of delivery. * Mat 21: Negative, girl * Level 2 US: 01/04/2023, no anomalies, small area of placenta edge with possibly circumvallate appearance, Dr. Finn believes probably normal variant. Follow-up growth scan recommended. * Growth between 32wk, BPP and EFW at 36 wk * 03/30/2023: USN for EFW 31w6d: Vtx. SDP 4.8cm. BPP 04/25. EFW: 2000 g, 4 lb 7 oz, 62%. BPD 52%, HC 39%, AC 84%, FL 22%. * 04/26/2023: EFW 35w5d. Vtx. SDP 4.2 cm. EFW 34%tile, AC 65%tile * Weekly NST at 37wk * Delivery between 39wk 2. H/o chronic HTN * Baseline pre E labs: all normal: BUN 14, creatinine 0.7, uric acid 2.7, AST 23, ALT 19, PC ratio of 0.0 * Daily baby ASA at 12 weeks 3. Closely spaced pregnancies. Delivered March 2022 4. 2 gestational sacs seen at 1st OB visit. * F/u US in 2 weeks: 1 viable and 1 anembryonic . 5. History of chronic and severe migraines. * On propranolol 60 mg b.i.d.. * Started Magnesium supplement daily on 12/05/22 6. History of macrosomia, 9 lb 14 oz with baby 4. 7. Anemia affecting . * 03/08/23 28wks: hgb = 10.0 starting an iron supplement QOD w/ food * Recheck hgb at 34wks 04/12/2023: 10.8: rec increasing to 2 tabs QOD w/ food. Flu: completed Covid: unvaccinated. Recommended. Declined. Comments: This is a 42-year-old white female 6 para [id number] comes in at 37 weeks with a due date of May 26 by a last menstrual period and a 12 week ultrasound with a nonreactive NST and biophysical that showed no fluid. Patient does have chronic hypertension which has been well controlled on propranolol 60 mg b.i.d.. Patient denies any symptoms of preeclampsia. Patient admits to movement. Patient without complaints. Patient's antepartum course has been unremarkable. She has been on baby aspirin since on 12 weeks. Patient is GBS negative. Past medical history significant for migraines and chronic hypertension. Past surgical history: LEEP. Medicines: Propranolol 60 b.i.d. and baby aspirin. Allergies: None. Social history: No smoke drink or drugs. 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 Meds Home Medications and Allergies Home Medications Medication Instructions Recorded Confirmed Type docosahexaenoic acid 200 mg 200 mg PO .OD 03/18/22 05/05/23 History capsule ( DHA) docusate sodium 100 mg capsule 100 mg PO .as needed PRN 03/18/22 05/05/23 History propranolol 60 mg tablet 60 mg PO BID 03/18/22 05/05/23 History rizatriptan 10 mg tablet 10 mg PO .As Needed as needed PRN 03/18/22 05/05/23 History aspirin 81 mg tablet,delayed 81 mg PO QDAY 05/11/22 05/05/23 History release (Adult Low Dose Aspirin) acetaminophen-caffeine 500 mg-65 1 tab PO Q6H PRN 10/14/22 05/05/23 History mg tablet (Excedrin Tension Headache) ferrous sulfate 325 mg (65 mg 90 mg PO Q OTHER DAY 05/05/23 05/05/23 History iron) tablet (iron) magnesium 500 mg tablet 500 mg PO DAILY 05/05/23 05/05/23 History Allergies Allergy/AdvReac Type Severity Reaction Status Date / Time No Known Allergies Allergy Unknown Verified 05/05/23 08:02 OB - H&P: Exam Physical Exam: Vital signs: Temp Pulse Resp BP 98.5 F 74 16 123/68 05/05/23 15:31 05/05/23 15:31 05/05/23 15:31 05/05/23 15:31 Narrative: HEENT: Unremarkable. Lungs: Clear Heart: Positive S1-S2 no S3 or S4. Regular rate and rhythm. Abdomen: Gravid. Fundal height approximately 37 weeks. Lower extremities: No edema. Sterile vaginal exam: 3 cm, 75% effaced, -1, FSE is applied. heart tones. One hundred thirty. Positive accelerations. No decelerations. Good variability. No contractions. Category 1. OB - Results Labs Labs: Short CBC 05/05/23 Range/Units 15:02 WBC 11.40 H (4.50-11.00) K/uL Hgb 10.6 L (12.0-16.0) gm/dL Hct 32.8 L (33.0-51.0) % Plt Count 234 (140-440) K/uL OB - A/P Antepartum Assessment and Plan (1) Hypertension: Problem details: History of chronic hypertension. BID propranolol maintains systolic blood pressures 96-132; diastolic blood pressures 52-82. Status: Acute Plan Assessment and plan: Early term 37 week intrauterine with chronic hypertension and oligohydramnios. well-being at this point in time is reassuring. Patient will get Pitocin induction of labor. Patient may have an epidural p.r.n..
[2023-05-05] MEDS: LACTATED RINGERS 1000 ML 1,000 ML 1200 ML IV (17:08)
[2023-05-05] MEDS: ROPIVACAINE 0.2% 100 ml 100 ML 12 MG EPIDURAL ×2 (17:09→23:16)
[2023-05-05] MEDS: LIDOCAINE 2% (PF) 5 ML VIAL EPIDURAL (17:16)
--- NOTE | 2023-05-05 17:21 | P.ANBPRC_ITS ---
[facility] Medical History Multigravida of advanced maternal age ?O09.529 - Supervision of elderly multigravida, unspecified trimester (ICD- 10) History of gestational hypertension ?Z87.59 - Personal history of other complications of , childbirth and the puerperium (ICD-10) ?Z34.90 - Encounter for supervision of normal , unspecified, unspecified trimester (ICD-10) Social History What is your current living situation?: I presently have a place to live Problems where you live: no known problems In the past 12 months, utilities in danger of being shut off: no In the past 12 mos, have been you worried that your food would run out before you had money to buy more?: never true In the past 12 mos, the food you bought just didn't last and you didn't have money to buy more?: never true Smoking Status: Former smoker How often does anyone, including family, friends and others, physically hurt you : never How often does anyone, including family, friends and others, insult or talk down to you: never How often does anyone, including family, friends and others, threaten you with harm: never How often does anyone, including family, friends and others, scream or curse at you: never Little interest or pleasure in doing things: not at all Feeling down, depressed, or hopeless: not at all Meds Home Medications and Allergies Home Medications Medication Instructions Recorded Confirmed Type docosahexaenoic acid 200 mg 200 mg PO .OD 03/18/22 05/05/23 History capsule ( DHA) docusate sodium 100 mg capsule 100 mg PO .as needed PRN 03/18/22 05/05/23 History propranolol 60 mg tablet 60 mg PO BID 03/18/22 05/05/23 History rizatriptan 10 mg tablet 10 mg PO .As Needed as needed PRN 03/18/22 05/05/23 History aspirin 81 mg tablet,delayed 81 mg PO QDAY 05/11/22 05/05/23 History release (Adult Low Dose Aspirin) acetaminophen-caffeine 500 mg-65 1 tab PO Q6H PRN 10/14/22 05/05/23 History mg tablet (Excedrin Tension Headache) ferrous sulfate 325 mg (65 mg 90 mg PO Q OTHER DAY 05/05/23 05/05/23 History iron) tablet (iron) magnesium 500 mg tablet 500 mg PO DAILY 05/05/23 05/05/23 History Allergies Allergy/AdvReac Type Severity Reaction Status Date / Time No Known Allergies Allergy Unknown Verified 05/05/23 08:02 Results Labs Labs: Laboratory Results - last 24 hr 05/05/23 15:02 WBC 11.40 H RBC 3.36 L Hgb 10.6 L Hct 32.8 L MCV 98 MCH 32 MCHC 32 RDW Coeff of Tatiana 15.8 H Plt Count 234 Neut % (Auto) 75.9 H Lymph % (Auto) 15.5 L [place] % (Auto) 5.5 Eos % (Auto) 1.0 Baso % (Auto) 0.3 Neut # (Auto) 8.70 H Lymph # (Auto) 1.80 [place] # (Auto) 0.60 Eos # (Auto) 0.10 Baso # (Auto) 0.00 Abs Immat Gran (auto) 0.20 Imm/Tot Granulo (auto) 1.8 Blood Type O Positive Antibody Screen NEGATIVE Vital Signs Vital Signs: Last Vital Signs Temp 98.8 F 05/05/23 16:35 Pulse 70 05/05/23 17:20 Resp 16 05/05/23 16:35 BP 122/80 05/05/23 17:20 Pulse Ox 99 05/05/23 17:21 Weight: 89.131 kg Height: 167.64 cm Anesthesia Procedures Epidural Insertion Patient Location: OB Start Time: 16: Stop Time: 17:23 Start Date: 05/05/23 Stop Date: 05/05/23 Reason for Block: procedure for pain Patient Position: sitting Performed By: Petrona Mota Preanesthetic Checklist: IV checked, risks and benefits discussed, monitors and equipment checked, pre-op evaluation, timeout performed and anesthesia consent Prep: chlorhexidine gluconate Monitoring: blood pressure monitoring, continuous pulse oximetry and heart rate Approach: midline Vertebral Space: lumbar (1-5) Epidural Technique: DANIELLE saline Needle Type: Tuohy needle Injection Technique: continuous catheter (continuous catheter) Needle gauge: 17 Needle Length (cm): 10 cm Needle Insertion Depth (cm): 7 Catheter Gauge: 19 Catheter Type: multi-orifice Catheter at skin depth (cm): 15 Test Dose Result: negative and lidocaine 1.5% with epinephrine 1 to 200,000
[2023-05-05] MEDS: LACTATED RINGERS 1000 ML 1,000 ML 912 ML IV (23:45)
[2023-05-06] VITALS (33 sets, daily range): BP systolic 104–264; BP diastolic 58–167; PULSE 68–176; RESP 16; TEMP 36.7–37.1; O2SAT 96–97
--- NOTE | 2023-05-06 04:45 | W.PM.OBVAGDE ---
OB Procedure Vag Delivery Mother Details Mother Details: The patient is a 42 year-old, 6, Para 5, admitted on 05/05/23 at Days gestation. : 6 Para: 6 Weeks Gestation: 37 Admission Date: 05/05/23 Additional Details Amniotic Membrane Status: AROM Amniotic Membrane Fluid Description: Clear Analgesia/Anesthesia Type: Epidural Pitcoin: Yes Intrapartal Events: None Heart: heart tones during second stage were [] Delivery Details Delivery Date: 05/06/23 Delivery Time: 04:46 Route of delivery: Infant Viability: Alive; Heart Rate Present Position at Delivery: OA Delivery Details: Delivered over [intact perineum] via [spontaneous] vaginal delivery. was placed on maternal abdomen.? Cord was clamped and cut after a 30-60 second delay. Nose and mouth were bulb suctioned.? weight pending. 1 Minute Interval Total Score: 9 5 Minute Interval Total Score: 9 10 Minute Interval Total Score: 9 Additional Details Shoulder Dystocia: No Placenta Delivery Time: 04:47 Placental Delivery Description: Spontaneous Delivery repair: Vicryl Procedure Done: Global Blood Loss: 100 Laceration: Vaginal - 1st Degree Episiotomy Description: None Blood Loss Measurement Type: EBL Bakri Used: No Sponge/Need Count Correct: Yes Cord Vessel Description: 3 Vessels Event Summary Status: Mother and infant were stable after delivery. Disposition: floor
[2023-05-06] MEDS: IBUPROFEN 600 MG TABLET PO ×3 (06:08→18:13)
[2023-05-06] MEDS: PROPRANOLOL 20 MG TABLET 60 MG PO ×2 (12:13→20:30)
[2023-05-06] MEDS: DOCUSATE SODIUM 100 MG CAPSULE PO (12:13)
--- NOTE | 2023-05-06 12:56 | PM.OBPNVD1 ---
OB - PN:Subj Subjective Time Seen by Provider: 12:56 Date Seen: 05/06/23 Interval history: Patient without complaints. Had a bowel movement. Hemorrhoids are somewhat bothersome. Patient comments OB post-: no complaints OB - PN: Obj Exam Physical Exam: Vital signs: Temp Pulse Resp BP Pulse Ox O2 Del Method 98.4 F 76 16 132/76 96 Room Air 05/06/23 12:16 05/06/23 12:16 05/06/23 12:16 05/06/23 12:16 05/06/23 12:16 05/06/23 12:16 Narrative: HEENT: Unremarkable. Lungs: Clear Heart: Positive S1-S2 no S3-S4. Abdomen: Positive bowel sounds soft nontender. OB - PN: Obj Data Labs Labs: Laboratory Results - last 24 hr 05/05/23 15:02 WBC 11.40 H RBC 3.36 L Hgb 10.6 L Hct 32.8 L MCV 98 MCH 32 MCHC 32 RDW Coeff of Tatiana 15.8 H Plt Count 234 Neut % (Auto) 75.9 H Lymph % (Auto) 15.5 L [place] % (Auto) 5.5 Eos % (Auto) 1.0 Baso % (Auto) 0.3 Neut # (Auto) 8.70 H Lymph # (Auto) 1.80 [place] # (Auto) 0.60 Eos # (Auto) 0.10 Baso # (Auto) 0.00 Abs Immat Gran (auto) 0.20 Imm/Tot Granulo (auto) 1.8 Blood Type O Positive Antibody Screen NEGATIVE OB - PN: A/P Delivery Assessment and Plan (1) Hypertension: Problem details: History of chronic hypertension. BID propranolol maintains systolic blood pressures 96-132; diastolic blood pressures 52-82. Status: Acute Plan day 0. patient doing well. Patient continue propanolol 60 mg p.o. b.i.d.. Plan Plan: routine care
[2023-05-06] MEDS: ACETAMINOPHEN 500 MG TABLET 1000 MG PO ×2 (15:38→21:59)
[2023-05-07] MEDS: IBUPROFEN 600 MG TABLET PO ×2 (00:49→07:00)
[2023-05-07 00:55] VITALS: BP 123/77; PULSE 71; RESP 16; TEMP 36.6; O2SAT 97
[2023-05-07 04:51] VITALS: BP 119/83; PULSE 72; RESP 16; TEMP 36.8; O2SAT 97
--- NOTE | 2023-05-07 07:30 | P.DS_ITS ---
DS: Providers Provider Time Seen by Provider: 07:30 Date Seen: 05/07/23 Date of admission: 05/05/23 13:36 Primary care physician: Petrona Barba PA-C Admitting Clinician: Azar Palacios MD Attending Physician on discharge: Azar Palacios MD DS: Diagnosis Discharge Diagnosis (1) Multigravida of advanced maternal age: Status: Acute Exam Narrative: Exam Narrative: HEENT: Unremarkable. Lungs: Clear Heart: Positive S1-S2 no S3-S4. Abdomen: Positive bowel sounds soft and nontender. Lower extremities: No edema. Negative Homans sign. Const: Vital Signs, click to edit/add: Vital Signs - 24 hr 05/06/23 07:39 05/06/23 12:16 05/06/23 20:15 Temperature 98.6 F 98.4 F 98.1 F Pulse Rate [Pulse Oximeter] 76 76 80 Respiratory Rate 16 16 16 Blood Pressure [Le ft Arm] 109/73 132/76 128/78 Pulse Oximetry 96 96 97 Oxygen Delivery Me thod Room Air Room Air Room Air 05/07/23 00:55 05/07/23 04:51 Temperature 97.9 F 98.2 F Pulse Rate [Pulse Oximeter] 71 72 Respiratory Rate 16 16 Blood Pressure [Le ft Arm] 123/77 119/83 Pulse Oximetry 97 97 Oxygen Delivery Me thod Room Air Room Air OB - DS: Summary Hospital Course Hospital Course: This is a 42-year-old female 6 para 5 who got admitted for induction of labor secondary to oligohydramnios at 3 7 weeks gestation. Patient had Pitocin induction of labor. She underwent a normal spontaneous vaginal delivery without complications producing a healthy baby. Patient is postop and course was unremarkable. She went home on day number 1 Time spent discussing smoking cessation with patient: more than 10 minutes Peripartum Data delivery method: Vaginal Laceration description: Vaginal - 1st Degree Infant Gender: Female Time Spent with Patient Time attestation: Total time spent providing and/or coordinating discharge services: Discharge Plan Discharge Disposition: Home, Self-Care Date of Admission: 05/05/23 13:36 Attending Provider on Discharge: Azar Palacios Primary Care Provider: Petrona Barba Condition: Stable Anticipated Discharge Date/Time: 05/07/23 07:35 Discharge Medications: Continued Excedrin Tension Headache 500-65 mg tablet 1 tab PO Q6H PRN propranolol 60 mg tablet 60 mg PO BID docusate sodium 100 mg capsule 100 mg PO .as needed PRN rizatriptan 10 mg tablet 10 mg PO .As Needed as needed PRN Rx Instructions: TAKE ONE TAB AT ONSET OF HEADACHE, MAY REPEAT Q2H PRN, MAX 30 MG/24 HRS DHA 200 mg capsule 200 mg PO .OD aspirin [Adult Low Dose Aspirin] 81 mg tablet,delayed release (DR/EC) 81 mg PO QDAY ferrous sulfate [iron] 325 mg (65 mg iron) tablet 90 mg PO Q OTHER DAY magnesium 500 mg tablet 500 mg PO DAILY Discharge Orders: Discharge Order (Routine); Ordered 05/07/23 Ordered By: Azar Palacios Follow Up Appointments: Petrona Barba PA-C [Primary Care Provider] - Forms: [facility] Info Instructions
[2023-05-07 09:22] VITALS: BP 118/78; PULSE 79; RESP 16; TEMP 36.9; O2SAT 97
[2023-05-07] MEDS: DOCUSATE SODIUM 100 MG CAPSULE PO (09:43)
[2023-05-07] MEDS: ACETAMINOPHEN 500 MG TABLET 1000 MG PO (09:43)
[2023-05-07] MEDS: PROPRANOLOL 20 MG TABLET 60 MG PO (09:44)
== END 2023-05-07 10:55 | disposition home or self-care (01) | DRG 560 ==
PROVIDERS: Admitting Provider Specialist; PCP Physician Assistant Medical; Visit Provider Specialist
DX: O10.92 Unspecified pre-existing hypertension complicating childbirth (principal); O41.03X0 Oligohydramnios, third trimester, not applicable or unspecified; O70.0 First degree perineal laceration during delivery; Z3A.37 37 weeks gestation of pregnancy; Z37.0 Single live birth
CPT/HCPCS: 1967; 36415; 76819; 85018; 85025; 86850; 86900; 86901; A9270; J2371; J2795; J7120

== ENCOUNTER 2023-06-15 08:55 | Outpatient (CLI) | payer BC, SELFPAY | END 2023-06-15 08:56 | disposition home or self-care (01) | LOC: NFLDREF 06-16 08:22 | PROVIDERS: PCP Physician Assistant Medical; Referring Provider Physician Assistant Medical; Visit Provider Registered Nurse | DX: Z13.1 Encounter for screening for diabetes mellitus (principal); Z39.2 Encounter for routine postpartum follow-up; Z30.9 Encounter for contraceptive management, unspecified | CPT/HCPCS: 82947 ==

== ENCOUNTER 2023-08-29 18:14 | Outpatient (CLI) | payer BC, SELFPAY ==
--- NOTE | 2023-08-29 18:20 | CRLHL7_ITS ---
For Patients: As a result of the Century Cures Act, medical imaging exams and procedure reports are released immediately into your electronic medical record. You may view this report before your referring provider. If you have questions, please contact your health care provider. BILATERAL SCREENING MAMMOGRAM WITH COMPUTER-AIDED DETECTION AND TOMOSYNTHESIS TECHNIQUE: CC and MLO views were obtained. These mammographic images have been obtained using full-field digital technique. These mammographic images were interpreted with the benefit of computer-aided detection. Breast Tomosynthesis was used in this interpretation. COMPARISON FILM: 05/03/22, 03/05/21, 07/12/17. FINDINGS: There are scattered areas of fibroglandular density IMPRESSION: There is no radiographic evidence for malignancy. ASSESSMENT: BI-RADS Category 1: Negative RECOMMENDATION: Routine screening mammogram in 1 year. A lay language report of this examination will be provided to the patient. Rubin Bowen M.D. Diagnostic Radiologist [email or web address] APRIL/Dictated by: Rubin Bowen MD @ 08/31/2023 8:13:00 AM (Electronically Signed)
== END 2023-08-29 18:15 | disposition home or self-care (01) ==
LOC: MAMMO 18:15
PROVIDERS: PCP Physician Assistant Medical; Visit Provider Obstetrics & Gynecology
DX: Z12.31 Encounter for screening mammogram for malignant neoplasm of breast (principal)
CPT/HCPCS: 77063; 77067

== ENCOUNTER 2025-04-21 15:44 | Outpatient (CLI) | payer BC, SELFPAY | END 2025-04-21 15:45 | disposition home or self-care (01) | PROVIDERS: PCP Physician Assistant Medical; Visit Provider Physician Assistant Medical | DX: E78.00 Pure hypercholesterolemia, unspecified (principal); I10 Essential (primary) hypertension; R35.0 Frequency of micturition; M25.50 Pain in unspecified joint; G43.909 Migraine, unspecified, not intractable, without status migrainosus | CPT/HCPCS: 80053; 82306; 82550; 82607; 82728; 82784; 83001; 83520; 83735; 84443; 84550; 86038; 86140; 86200; 86231; 86258; 86364; 86431; 86618; 86812; 87086 ==

== ENCOUNTER 2025-05-06 08:29 | Outpatient (CLI) | payer BC, SELFPAY ==
--- NOTE | 2025-05-06 08:45 | CRLHL7_ITS ---
For Patients: As a result of the 21st Century Cures Act, medical imaging exams and procedure reports are released immediately into your electronic medical record. You may view this report before your referring provider. If you have questions, please contact your health care provider. EXAM: MRI OF THE RIGHT SHOULDER WITHOUT CONTRAST CLINICAL INDICATION: Right shoulder pain and limited range of motion. COMPARISON PLAIN FILMS: None available at time of interpretation. COMPARISON CROSS-SECTIONAL IMAGING STUDIES: None available at time of interpretation. TECHNICAL: Axial, sagittal oblique and coronal oblique T1, PD, PD FS and T2-weighted images. Shoulder surface coil. FINDINGS: ROTATOR CUFF TENDONS AND MUSCLES AND DELTOID: Supraspinatus: No tendinosis, tendon tearing, muscle atrophy or muscle edema. Infraspinatus: No tendinosis, tendon tearing, muscle atrophy or muscle edema. Subscapularis: No tendinosis, tendon tearing, muscle atrophy or muscle edema. Teres Minor: No tendinosis, tendon tearing, muscle atrophy or muscle edema. Deltoid: No muscle atrophy or edema. BURSA: Subacromial-subdeltoid: No abnormal bursal edema, thickening or bursal fluid. BICEPS TENDON, LONG HEAD: The long head of the biceps tendon is appropriately positioned within the bicipital groove without tendon subluxation or dislocation. The biceps yasmine mechanism is intact. The biceps anchor appears grossly intact. There is no significant tendinosis or tendon tearing. CORACOACROMIAL ARCH: Acromial Morphology: Type 1 acromial morphology. No abnormal lateral or anterior downward sloping of the acromion. No significant subacromial spur. No os acromiale. Acromiohumeral Interval: Normal. Coracohumeral Interval: Normal. ACROMIOCLAVICULAR JOINT REGION: AC Joint: No significant arthrosis, inferior hypertrophy, joint space widening, findings of acute injury or AC joint capsulitis. Ligaments: The coracoclavicular ligaments are intact. GLENOHUMERAL JOINT: Joint space: No effusion or synovitis. Humeral Head Articular Cartilage: No focal cartilage defect or underlying subchondral marrow changes. Glenoid Articular Cartilage: No focal cartilage defect or underlying subchondral marrow changes. Labrum: No labral tear or paralabral cyst. Alignment: Maintained. Capsule: No capsular edema or abnormal capsular thickening. OSSEOUS STRUCTURES: No fracture, marrow edema or marrow replacement process. OTHER FINDINGS: There is no abnormality within the suprascapular or spinoglenoid notches nor within the quadrilateral space. No axillary adenopathy or mass. IMPRESSION: 1. Unremarkable MRI of the right shoulder. Dictated by Wing Garvey MD @ 05/07/2025 12:52:05 PM (Electronically Signed)
== END 2025-05-06 08:30 | disposition home or self-care (01) ==
LOC: MRI 08:30
PROVIDERS: PCP Physician Assistant Medical; Visit Provider Physician Assistant Medical
DX: M25.511 Pain in right shoulder (principal)
CPT/HCPCS: 73221

== ENCOUNTER 2025-08-29 08:44 | Outpatient (CLI) | payer BC, SELFPAY ==
[2025-08-29 15:07] LABS: Albumin* 4.2 g/dL (3.3-5.0); Chloride* 102 mmol/L (96-114)
[2025-08-29 15:08] LABS: Potassium* 4.4 mmol/L (3.6-5.1); Sodium* 140 mmol/L (135-149)
[2025-08-29 15:10] LABS: Alanine Aminotransferase* 18 U/L (4-35); Alkaline Phosphatase* 56 U/L (40-150); Anion Gap 10 mEq/L (7-15); Aspartate Amino Transferase* 22 U/L (12-35); Bilirubin Total* 0.4 mg/dL (0.1-1.5); Blood Urea Nitrogen* 18 mg/dL (5-24); Carbon Dioxide* 28 mmol/L (20-32); Creatinine* 0.9 mg/dL (0.5-1.5); Estimated Glomerular Filt Rate 81 ml/min; Total Protein* 6.9 g/dL (6.0-8.3)
[2025-08-29 15:11] LABS: Calcium* 9.2 mg/dL (8.4-10.6); Cholesterol* 208 mg/dL (90-199); Glucose* 93 mg/dL (60-115); HDL Cholesterol* 52 mg/dL (>=50); Triglycerides* 83 mg/dL (40-149)
== END 2025-08-29 08:45 | disposition home or self-care (01) ==
LOC: NPINS 08:45
PROVIDERS: PCP Physician Assistant Medical; Visit Provider Internal Medicine
DX: Z13.228 Encounter for screening for other metabolic disorders (principal)
CPT/HCPCS: 80053; 80061; 83036